=== PATIENT | female | born 1960 | race Caucasian/White ===

== ENCOUNTER 2020-01-17 11:30 | Emergency (ER) | payer BC, SELFPAY ==
[2020-01-17 11:30] VITALS: BP 173/82; PULSE 73; RESP 15; TEMP 36.7; O2SAT 97; BMI 35.4
--- NOTE | 2020-01-17 12:00 | ED.LOWEXIN ---
HPI - Extremity Injury (Lower) <KHUSHBOO Russo - Last Filed: 01/17/20 13:50> General Chief Complaint: Extremity Injury, Lower Stated Complaint: left knee injury 6 months ago Time Seen by Provider: 01/17/20 11:35 Source: patient Mode of arrival: Ambulatory Limitations: no limitations History of Present Illness HPI Narrative: This is a 59-year-old female, smoker, who presents to ED with chief complain of left medial knee pain and swelling. She reports had injured left knee 6 months ago after she hit the affected knee on a bedpost and reports has been using ibuprofen 400 mg up to 3 times a day daily to help with pain and yesterday hit the same knee again on a rocking chair which caused severe pain. Patient reports she is able to bear weight and walk but it is painful. Patient reports intact sensation and mobility to distal toes. Patient did not come to ED 6 months ago with initial injury due to Covid pandemic. She is new in town and has not set up primary care physician. Related Data Allergies Allergy/AdvReac Type Severity Reaction Status Date / Time No Known Drug Allergies Allergy Verified 01/17/20 11:34 Review of Systems <KHUSHBOO Russo - Last Filed: 01/17/20 13:50> Review of Systems Narrative: General: Denies fever, chills, fatigue, malaise, sweats. Respiratory: Denies dyspnea, cough, wheezing, hemoptysis, sputum. Cardiovascular: Denies chest pain, palpitations, orthopnea, edema. Gastrointestinal: Denies nausea, vomiting, abdominal pain, diarrhea, constipation, melena. Musculoskeletal: See HPI Skin: Denies rash, skin lesions, or other. Patient History <KHUSHBOO Russo - Last Filed: 01/17/20 13:50> Medical History Tooth abscess (Acute) Surgical History History of (Acute) Social History Smoking Status: Current every day smoker Smoking Status: Current every day smoker alcohol intake frequency: holidays/special occasions only Substance Use Type: does not use Exam <Damon LeonardoKHUSHBOO - Last Filed: 01/17/20 13:50> Narrative Exam Narrative: General appearance: well developed, well nourished, in no acute distress. Head: normocephalic, atraumatic, no scalp lesions, non-tender. ENT: Hearing grossly intact. Airway patent. Neck/Thyroid: neck supple, full range of motion, no visible masses or meningeal signs. No JVD, non-tender without lymphadenopathy. Skin: no suspicious rashes, lesions over visible areas. Warm and dry and appropriate color for ethnicity. Heart: no clubbing, no cyanosis, no edema. Lungs: Breathing even and unlabored. No stridor. No accessory muscles used. Able to speak in full sentences. Chest: normal shape and expansion. Abdomen: non-obese, non-distended. Neurologic: alert and oriented. Cognitive exam, PACKAGE WINDER and PNS grossly intact on informal exam. Psych: good eye contact, normal affect. Initial Vital Signs Initial Vital Signs: Vital Signs Temperature 98.0 F 01/17/20 11:30 Pulse Rate 73 01/17/20 11:30 Respiratory Rate 15 01/17/20 11:30 Blood Pressure 173/82 H 01/17/20 11:30 Pulse Oximetry 97 01/17/20 11:30 Extrem Left lower extremity: normal to inspection, full ROM, no joint enlargement, knee Details: tenderness Location: of the medial joint line, knee ligament exam abnormal Details: varus stress test and Rodney's Test Details: positive medially and laterally; no swelling, no lacerations, no ecchymosis, no crepitus, no deformity and no unusual warmth, lower leg Details: normal to inspection; no tenderness and no localized swelling and foot Details: toes with normal ROM, vascular exam Details: dorsalis pedis pulse present and motor-sensory exam Details: light-touch normal; no tenderness; no edema <Jorge Argueta DO - Last Filed: 01/17/20 15:05> Initial Vital Signs Initial Vital Signs: Vital Signs Temperature 98.0 F 01/17/20 11:30 Pulse Rate 73 01/17/20 11:30 Respiratory Rate 15 01/17/20 11:30 Blood Pressure 173/82 H 01/17/20 11:30 Pulse Oximetry 97 01/17/20 11:30 Scores <KHUSHBOO Russo - Last Filed: 01/17/20 13:50> GCS Nidia coma scale eye opening: Spontaneous Olmitz coma scale verbal response: Orientated Olmitz coma scale motor response: Obey commands Olmitz coma scale total score: 15 Course <KHUSHBOO Russo - Last Filed: 01/17/20 13:50> Orders Ordered: ED Orders 01/17/20 11:59 XR knee LT 3V Stat Vital Signs Vital signs: Vital Signs - 8 hr 01/17/20 11:30 01/17/20 13:12 Temperature 98.0 F Pulse Rate 73 62 Respiratory Rate 15 Blood Pressure 173/82 H 166/72 H Pulse Oximetry 97 98 <Jorge Argueta DO - Last Filed: 01/17/20 15:05> Orders Ordered: ED Orders 01/17/20 11:59 XR knee LT 3V Stat Vital Signs Vital signs: Vital Signs - 8 hr 01/17/20 11:30 01/17/20 13:12 Temperature 98.0 F Pulse Rate 73 62 Respiratory Rate 15 Blood Pressure 173/82 H 166/72 H Pulse Oximetry 97 98 MDM - Extremity Injury (Lower) <KHUSHBOO Russo - Last Filed: 01/17/20 13:50> Differential Diagnosis Differential diagnosis: Likely acute internal derangement of knee and other (Knee contusion) Medical Records Attestation: I reviewed the patient's medical records. Imaging Data XR-Knee LT: Radiologist's Impression: [address] [address] XRay Report Signed Patient: Dilcia Peterson [facility]#: [id number] : 1960Acct:[id number] Age/Sex: 59 / FDate of Service: 01/17/20 Loc: ED Accession Number: [id number] Procedure: XR knee LT 3V Ordering Provider: Damon Leonardo PROCEDURE: XR KNEE LT 3V INDICATIONS: medial knee pain, swelling x6 months TECHNIQUE: 3 views of the knee were acquired. COMPARISON: None. FINDINGS: Bones: No fractures or dislocations. No suspicious bony lesions. Soft tissues: No joint effusion. No suspicious soft tissue calcifications. IMPRESSION: No evidence acute bony abnormality of the left knee. If clinical suspicion and/or symptoms persist, further assessment with repeat plain films, or advanced imaging (e.g., CT, MRI, or bone scan) may be helpful for further assessment. Dictated by: Wenceslao Ray M.D. on 01/17/2020 at 12:34 Approved by: Wenceslao Ray M.D. on 01/17/2020 at 12:[address] [facility] Narrative Medical decision making narrative: This is a 59-year-old female who presents to ED with 6 month duration of left knee pain after initially she injured after hitting on a bedpost reports increasing medial knee pain and swelling after she hit affected need on rocking chair again yesterday. She has intact sensation and pulses distally. No obvious deformity or swelling appreciated per exam. X-ray test does not show dislocations or fractures. Patient does not have primary care physician and [facility] Resource number provided to arrange primary care physician to follow-up for possible a referral to physical therapist or further advanced imaging test. Jay wrap was offered to use it as needed for pain and advised to use Tylenol and or Motrin as needed for discomfort. Return precautions were discussed with patient and she verbalized understanding and in agreement with the treatment plan. Discharge Plan Departure Patient Disposition: Home Clinical Impression: Contusion of knee Qualifiers: Encounter type: initial encounter Laterality: left Qualified Code(s): S80.02XA - Contusion of left knee, initial encounter Discharge Date/Time: 01/17/20 13:13 Instructions: DI for Knee Pain Activity Restrictions/Additional Instructions: You have been diagnosed with [left knee contusion. X-ray test does not show acute findings such as fractures or dislocations. Please wear Jay wrap for comfort.]. What to do: *Take your medications as directed. You can add Tylenol as needed for discomfort or replace ibuprofen. You can use cool pack for next 24-48 hours. *Follow up with your primary care provider in 2-3 days, call for an appointment. Let them know you were seen in the ED and that we asked you to be seen in follow up. If pain persists greater than 10 days to 2 weeks, you may need a referral to physical therapist or orthopedist. *Return to ED if you have any new, worsening, or concerning symptoms, such as [worsening pain, weakness/tingling/numbness to distal foot, chest pain, breathing difficulty, unable to tolerate fluids or any acute concerns]. Referrals: [facility] [Outside] <Jorge Argueta, DO - Last Filed: 01/17/20 15:05> Cosign ED Attending Cosignature Attestation: Dr Argueta Co-Sign Statement: I was available for consultation during this patient's emergency department visit. This chart is signed by myself for administrative purposes only. I did not have direct contact with this patient during this visit. They were seen independently by the APC.
[2020-01-17 13:12] VITALS: BP 166/72; PULSE 62; O2SAT 98
== END 2020-01-17 13:13 | disposition home or self-care (01) ==
PROVIDERS: Emergency Provider Nurse Practitioner Family; Family Provider Family Medicine; PCP Family Medicine
DX: S80.02XA Contusion of left knee, initial encounter (principal); W22.8XXA Striking against or struck by other objects, initial encounter
CPT/HCPCS: 73562; 99283